=== PATIENT | male | born 1955 | race Caucasian/White ===

== ENCOUNTER 2023-03-11 07:21 | Emergency (ER) | payer MEDICAID, MEDICARE ==
[2023-03-11] MEDS ORDERED: Ondansetron PF 4 MG/2 ML Vial ONE (08:02)
[2023-03-11 08:07] LABS: #Lymphocytes 1.1 thou/uL (1.20-3.40); #Monocytes 0.3 thou/uL (0.11-0.59); #Neutrophils 11.3 thou/uL (1.40-6.50); %Basophils 0.2 % (0.0-1.0); %Eosinophils 0.4 % (0.0-10.0); %Lymphocytes 8.5 % (21.0-51.0); %Monocytes 2.5 % (0.0-10.0); %Neutrophils 88.4 % (42.0-75.0); Hemoglobin 13.3 g/dL (14.0-18.0); Mean Corpuscular HGB CONC 30.9 g/dL (32.0-36.0); Mean Corpuscular Hemoglobin 26.4 pg (27.0-31.0); Mean Corpuscular Volume 85.6 fl (78.0-98.0); Mean Platelet Volume 6.6 fL (7.4-10.4); Platelet Count 246 10x3/uL (130-400); RBC Distribution Width 17.4 % (11.5-14.5); Red Blood Cell (RBC) Count 5.03 mill/uL (4.70-6.10); White Blood Cell (WBC) Count 12.8 10x3/uL (4.8-10.8)
[2023-03-11 08:26] LABS: ALT (SGPT) 15 U/L (8-55); AST (SGOT) 16 U/L (5-34); Albumin 4.7 g/dL (3.4-4.8); Alkaline Phosphatase 65 U/L (40-110); Anion Gap 17 mmol/L (10-20); BUN (Urea Nitrogen) 14 mg/dL (8.4-25.7); Bilirubin, Total 0.3 mg/dL (0.2-1.2); Calc. Creatinine Clearance 0 mL/min (70-130); Calcium 10.3 mg/dL (7.8-10.44); Carbon Dioxide 23 mmol/L (23-31); Chloride 104 mmol/L (98-107); Estimated GFR 94; Globulin 3.8 g/dL (2.4-3.5); Glucose 163 mg/dL (80-115); Lipase 28 U/L (8-78); Magnesium 2.3 mg/dL (1.6-2.6); Potassium 3.7 mmol/L (3.5-5.1); Protein, Total 8.5 g/dL (5.8-8.1); Sodium 140 mmol/L (136-145)
[2023-03-11] MEDS ORDERED: Iopamidol 370 76% 100 ML VIAL ONE (10:41)
[2023-03-11] MEDS ORDERED: Fleet Saline Enema 133 ML BOT ONE (11:38)
== END 2023-03-11 11:28 | disposition short-term general hospital (02) ==
LOC: BURERS 07:21
DX: K56.609 Unspecified intestinal obstruction, unspecified as to partial versus complete obstruction (principal); D72.829 Elevated white blood cell count, unspecified; K21.9 Gastro-esophageal reflux disease without esophagitis
CPT/HCPCS: 74177; 80053; 83605; 83690; 83735; 83880; 84484; 85025; 93005; 96361; 96374; J2405; Q9967

== ENCOUNTER 2024-01-24 01:29 | Emergency (ER) | payer MEDICARE ==
[2024-01-24] MEDS ORDERED: Iopamidol 370 76% 100 ML VIAL ONE (08:44)
== END 2024-01-24 05:28 ==
LOC: BURERS 01:29
DX: K94.20 Gastrostomy complication, unspecified (principal)
CPT/HCPCS: 43762; 74018; Q9967